=== PATIENT | female | born 1975 | race Caucasian/White ===

== ENCOUNTER 2025-05-11 06:22 | Day surgery (SDC) | payer OTHER, SELFPAY | END 2025-05-11 11:57 | disposition home or self-care (01) | LOC: GI 06:22 | PROVIDERS: ATTENDING PHYSICIAN Surgery | DX: Z12.11 Encounter for screening for malignant neoplasm of colon (principal); K56.699 Other intestinal obstruction unspecified as to partial versus complete obstruction; D12.5 Benign neoplasm of sigmoid colon; Z83.719 Family history of colon polyps, unspecified; Z86.0100 Personal history of colon polyps, unspecified | CPT/HCPCS: 45385; 88305 ==